=== PATIENT | female | born 1970 | race Caucasian/White ===

== ENCOUNTER 2016-03-29 09:53 | Emergency (ER) | payer OTHER ==
[~2016-03-29] VITALS: Ht 157.5 cm; Wt 138.3 kg
[2016-03-29 10:00] VITALS: BP 165/99
--- NOTE | 2016-03-29 10:59 | PHYS DOC ---
Past Medical History Past Medical History: Anxiety, Asthma, Depression, Diabetes-Type II, High Cholesterol Past Surgical History: Cholecystectomy, Other Additional Past Surgical Histo: fibroma lt tibia w/bone graft Alcohol Use: None Drug Use: None Adult General Chief Complaint Chief Complaint: BACK PAIN OR INJURY [facility] HPI Patient is a 46 year old female presents emergency department stating that she slipped and fell on the ice. She states she fell on her back and hit her upper back on a curb. Patient was also states she's having neck pain and discomfort. She denies any loss of bowel or bladder. She denies any numbness or tingling down into her extremities. She states that she can feel the mid part of her back Spasms. Patient Denies Any Shortness of Air Difficulty Breathing. Review of Systems Review of Systems Constitutional: Denies fever or chills [] Eyes: Denies change in visual acuity, redness, or eye pain [] HENT: Denies nasal congestion or sore throat [] Respiratory: Denies cough or shortness of breath [] Cardiovascular: No additional information not addressed in HPI [] GI: Denies abdominal pain, nausea, vomiting, bloody stools or diarrhea [] : Denies dysuria or hematuria [] Musculoskeletal: back pain and cervical spine pain denies joint pain [] Integument: Denies rash or skin lesions [] Neurologic: Denies headache, focal weakness or sensory changes [] Allergies Allergies Allergies Coded Allergies Type Severity Reaction Last Updated Verified Sulfa (Sulfonamide Antibiotics) Allergy Severe fever/rash 09/09/13 Yes Penicillins Allergy Intermediate fever/soa 09/09/13 Yes azithromycin Allergy Intermediate dizziness/tunnel vision 09/09/13 Yes cephalexin Allergy Intermediate rash 09/09/13 Yes Physical Exam Physical Exam Constitutional: Well developed, well nourished, no acute distress, non-toxic appearance. [] HENT: Normocephalic, atraumatic, bilateral external ears normal, oropharynx moist, no oral exudates, nose normal. [] Eyes: PERRLA, EOMI, conjunctiva normal, no discharge. [] Neck: Normal range of motion, no tenderness, supple, no stridor. [] Cardiovascular:Heart rate regular rhythm Lungs & Thorax: no respiratory distress Skin: Warm, dry, no erythema, no rash. [] Back: Patient was noted to have spinal tenderness on the cervical area with no deformity step-offs or crepitus noted. Patient denies thoracic or lumbar spine tenderness, no deformities no step-offs no crepitus noted. Patient does states she has paraspinal tenderness to the left of the spine. Extremities: No tenderness, no cyanosis, no clubbing, ROM intact, no edema. [] Neurologic: Alert and oriented X 3, normal motor function, normal sensory function, no focal deficits noted. [] Psychologic: Affect normal, judgement normal, mood normal. [] Current Patient Data Vital Signs Vital Signs Date Time Temp Pulse Resp B/P Pulse Ox O2 Delivery O2 Flow Rate FiO2 03/29/16 10:00 98.3 108 20 96 Room Air 98.3 EKG EKG [] Radiology/Procedures Radiology/Procedures [facility] [address] [place] [address] IMAGING REPORT Signed PATIENT: BUNNY ISAAC ACCOUNT: [id number] : 1970 LOCATION: ER AGE: 46 SEX: F EXAM STATUS: REG ER ORD. PHYSICIAN: NAIF REEDER NP REASON: cervical spine pain after fall PROCEDURE: CERVICAL SPINE WO CONTRAST CT cervical spine without contrast History: Pain after fall Comparison: None. Technique: Noncontrast helical CT of the cervical spine was performed from the skull base through the mid T3 level. Axial, sagittal, and coronal reconstructions were obtained. One or more of the following individualized dose reduction techniques were utilized for the study: Automated exposure control Adjustment of mA and/or kV according to patient's size Use of iterative reconstruction technique. Findings: There is no evidence of acute fracture or acute malalignment. No prevertebral soft tissue swelling is identified. Multilevel degenerative disc disease is seen from C3-4 through C6-7. Impression: No acute osseous traumatic injury identified. DICTATED and SIGNED BY: TRAY RYAN MD DATE: 03/29/16 1159 CC: NAIF REEDER MANGANESE WHE[employer]ER; VANDANA JARRETT MD ~ [] Course & Med Decision Making Course & Med Decision Making Pertinent Labs and Imaging studies reviewed. (See chart for details) C-collar in place awaiting CT scan of cervical spine. C-spine clearance obtained. CT scan negative for any abnormalities. Patient will be discharged home with Flexeril. She was instructed this medication will cause drowsiness do not take any be alert and oriented. Recommended ice packs to the areas of discomfort on 20 minutes off 20 minutes several times a day. Also recommended ibuprofen 800 mg every 8 hours with food. Also instructed patient to stop taking this medication if it upset stomach. Patient was provided with signs and symptoms to return back to the emergency department. Patient agrees with discharge instructions treatment regimens and follow-up recommendations. To providing patient with discharge instructions she states that she is allergic to ibuprofen. She has not disclosed that information during this visit or previous visits here in the emergency department. Recommended that she take Tylenol for her pain and discomfort. [] Dragon Disclaimer Dragon Disclaimer This electronic medical record was generated, in whole or in part, using a voice recognition dictation system. Departure Departure Impression: Primary Impression: Fall Additional Impressions: Back pain Cervical strain, acute Disposition: 01 HOME, SELF-CARE Condition: STABLE Referrals: VANDANA JARRETT MD (PCP) Patient Instructions: Back Pain, Adult, [id number], Fall Prevention and Home Safety, [id number], Soft Tissue Injury of the Neck, [id number] Additional Instructions: Activity as tolerated Tylenol or ibuprofen for pain and discomfort. You may take ibuprofen 800 mg every 8 hours with food. Stop taking if you develop an upset stomach. Flexeril will cause drowsiness do not take any be alert and oriented. Ice packs on 20 minutes off 20 minutes several times a day. Follow-up with your primary care physician next 7-10 days. Scripts Cyclobenzaprine Hcl 10 Mg [id number] Mg PO TID #20 TAB Prov:NAIF REEDER NP 03/29/16 Problem Qualifiers NAIF REEDER NP Mar 29, 2016 10:59
--- NOTE | 2016-03-29 12:04 | RAD ---
CT cervical spine without contrast History: Pain after fall Comparison: None. Technique: Noncontrast helical CT of the cervical spine was performed from the skull base through the mid T3 level. Axial, sagittal, and coronal reconstructions were obtained. One or more of the following individualized dose reduction techniques were utilized for the study: Automated exposure control Adjustment of mA and/or kV according to patient's size Use of iterative reconstruction technique. Findings: There is no evidence of acute fracture or acute malalignment. No prevertebral soft tissue swelling is identified. Multilevel degenerative disc disease is seen from C3-4 through C6-7. Impression: No acute osseous traumatic injury identified.
[2016-03-29] MEDS ORDERED: CYCL10TA2 PO (12:11)
== END 2016-03-29 12:29 | disposition home or self-care (01) ==
LOC: ER 09:53
DX: S16.1XXA Strain of muscle, fascia and tendon at neck level, initial encounter (principal); M54.9 Dorsalgia, unspecified; F32.9 Major depressive disorder, single episode, unspecified; E11.9 Type 2 diabetes mellitus without complications; E78.00 Pure hypercholesterolemia, unspecified; J45.909 Unspecified asthma, uncomplicated; F41.9 Anxiety disorder, unspecified; Z88.0 Allergy status to penicillin; Z88.2 Allergy status to sulfonamides; Z88.1 Allergy status to other antibiotic agents; W00.9XXA Unspecified fall due to ice and snow, initial encounter; Y93.89 Activity, other specified; Y92.89 Other specified places as the place of occurrence of the external cause; Y99.8 Other external cause status
CPT/HCPCS: 72125; 99284